=== PATIENT | female | born 1975 | race Caucasian/White ===

== ENCOUNTER 2018-09-28 18:28 | Inpatient (IN) | payer MEDICAID ==
[~2018-09-28] VITALS: Ht 152.4 cm; Wt 68.8 kg
[2018-09-28] MEDS ORDERED: SODIUM CHLORIDE 0.9% 1L BAG IV* STA (18:32)
[2018-09-28] MEDS ORDERED: CEFTRIAXONE 1 GM/50 ML (PMX) 50 ML IVPB STA (18:32)
[2018-09-28] MEDS ORDERED: ONDANSETRON 4 MG INJ IV STA (18:32)
[2018-09-28] MEDS ORDERED: ACETAMINOPHEN 325 MG TAB PO STA (18:32)
--- NOTE | 2018-09-28 22:03 | ERD ---
ER Documentation Chief Complaint Chief Complaint AP AND FEVER X YESTERDAY HPI 43-year-old female presents with abdominal pain and fever for the last day, abdominal pain is mainly to the right flank area. Patient also presents with a fever, in triage the patient was called to the code sepsis. She reports that her symptoms have been ongoing for the last day, she has had no rectal bleeding, no chest pain or shortness of breath. She does not take Tylenol prior to arrival, there are no alleviating or aggravating factors ROS All systems reviewed and are negative except as per history of present illness. Medications Home Meds No Active Prescriptions or Reported Meds Allergies Allergies: Coded Allergies: No Known Drug Allergy (Verified Allergy, Mild, 12/30/09) PMhx/Soc Medical and Surgical Hx: pt denies Medical Hx, pt denies Surgical Hx Hx Alcohol Use: No Hx Substance Use: No Hx Tobacco Use: No Smoking Status: Never smoker Physical Exam Vitals Vital Signs Date Temp Pulse Resp B/P (MAP) Pulse Ox O2 O2 Flow FiO2 Time Delivery Rate 09/28/18 91 18 104/68 100 Room Air 22:04 (80) 09/28/18 89 20 83/57 (66) 100 Room Air 21:48 09/28/18 94 13 96/70 (79) 98 Room Air 21:01 09/28/18 99.0 100 18 106/74 98 Room Air 20:22 (85) 09/28/18 103.1 112 20 118/76 98 Room Air 18:55 (90) 09/28/18 103.1 18:55 09/28/18 100.3 134 20 138/72 98 18:29 (94) Physical Exam Const: Fever noted, patient appears moderately uncomfortable, well-nourished well-hydrated Head: Atraumatic Eyes: Normal Conjunctiva ENT: Normal External Ears, Nose and Mouth. Neck: Full range of motion. No meningismus. Resp: Clear to auscultation bilaterally Cardio: Regular rate and rhythm, no murmurs Abd: Soft, non tender,, there is no rebound or guarding, there is no McBurney's point tenderness, non distended. Normal bowel sounds Skin: No petechiae or rashes Back: No midline tenderness, there is right-sided flank tenderness. Ext: No cyanosis, or edema Neur: Awake and alert Psych: Normal Mood and Affect Result Diagram: 09/28/18 1842 09/28/18 1842 Results 24 hrs Laboratory Tests Test 09/28/18 18:42 09/28/18 18:45 09/28/18 18:55 09/28/18 19:05 White Blood Count 15.7 10^3/ul Red Blood Count 4.75 10^6/ul Hemoglobin 13.7 g/dl Hematocrit 41.7 % Mean Corpuscular 87.8 fl Volume Mean Corpuscular 28.8 pg Hemoglobin Mean Corpuscular 32.9 g/dl Hemoglobin Concen t Red Cell 13.0 % Distribution Width Platelet Count 410 10^3/UL Mean Platelet 8.6 fl Volume Immature 0.300 % Granulocytes % Neutrophils % % Segmented 83 % Neutrophils % (Manual) Band Neutrophils 5 % % (Manual) Lymphocytes % % Lymphocytes % 9 % (Manual) Monocytes % % Monocytes % 3 % (Manual) Eosinophils % % Basophils % % Nucleated Red 0.0 /100WBC Blood Cells % Immature 0.050 10^3/ul Granulocytes # Neutrophils # 10^3/ul Neutrophils # 13.1 10^3/ul (Manual) Band Neutrophils 0.7 10^3/ul # Lymphocytes 1.4 10^3/ul (Manual) Lymphocytes # 10^3/ul Monocytes # 10^3/ul Monocytes # 0.4 10^3/ul (Manual) Eosinophils # 10^3/ul Basophils # 10^3/ul Nucleated Red 10^3/ul Blood Cells # Platelet Estimate NORMAL Prothrombin Time 13.6 Sec Prothrombin Time 1.1 Ratio INR International 1.03 Normalized Ratio Activated 27.8 Sec Partial Thrombopl ast Time Sodium Level 138 mmol/L Potassium Level 3.9 mmol/L Chloride Level 99 mmol/L Carbon Dioxide 27 mmol/L Level Anion Gap 12 Blood Urea 16 mg/dl Nitrogen Creatinine 0.79 mg/dl Est Glomerular > 60 mL/min Filtrat Rate mL/min Glucose Level 130 mg/dl Calcium Level 9.4 mg/dl Total Bilirubin 0.7 mg/dl Direct Bilirubin 0.00 mg/dl Indirect 0.7 mg/dl Bilirubin Aspartate Amino 24 IU/L Transf (AST/SGOT) Alanine 9 IU/L Aminotransferase (ALT/SGPT) Alkaline 104 IU/L Phosphatase Troponin I < 0.012 ng/ml Total Protein 8.3 g/dl Albumin 4.5 g/dl Globulin 3.80 g/dl Albumin/Globulin 1.18 Ratio POC Venous 1.5 mmol/L Lactate Urine Color SHAN Urine Clarity CLOUDY Urine pH 6.0 Urine Specific 1.028 [place] Urine Ketones 2+ mg/dL Urine Nitrite NEGATIVE mg/dL Urine Bilirubin NEGATIVE mg/dL Urine 2+ mg/dL Urobilinogen Urine Leukocyte 2+ Hetal/ul Esterase Urine Microscopic 47 /HPF RBC Urine Microscopic 182 /HPF WBC Urine Squamous MANY /HPF Epithelial Cells Urine Bacteria FEW /HPF Urine Mucus MANY /HPF Urine Hemoglobin 3+ mg/dL Urine Glucose NEGATIVE mg/dL Urine Total 2+ mg/dl Protein POC Beta HCG, NEGATIVE Qualitative Test 09/28/18 20:49 POC Venous 1.0 mmol/L Lactate Current Medications Medications Dose Sig/Deirdre Start Time Status Last (Trade) Ordered Route PRN Stop Time Admin Dose Reason Admin Sodium 1,960 ml BOLUS OVER 2 09/28/18 DC 09/28/18 Chloride HOURS STAT 18:32 18:56 (NS) IV* 09/28/18 18:35 650 mg ONCE STAT 09/28/18 DC 09/28/18 Acetaminophen PO 18:32 18:55 (Tylenol 09/28/18 18:35 Tab) Ondansetron 4 mg ONCE STAT 09/28/18 DC 09/28/18 HCl (Zofran IV 18:32 18:54 Inj) 09/28/18 18:35 Ceftriaxone 50 ml @ ONCE STAT 09/28/18 DC 09/28/18 Sodium 100 mls/hr IVPB 18:32 18:55 09/28/18 19:01 Procedures/MDM 43-year-old female presents for evaluation of right-sided flank pain. Code sepsis was called on the patient, and she was given ceftriaxone, her urinalysis returned positive for CT abdomen pelvis did not show any other acute intra- abdominal findings, with no evidence of appendicitis, no evidence of acute cholecystitis. Labs remarkable for leukocytosis, she was given 30 cc/kg bolus of fluids, her lactate was within normal limits, on reassessment she still has some mild pain, and I noted that her blood pressure was in the 80s systolic, however her map was 65, she is mentating well, and appears to be having good perfusion on exam, thus I do not feel that she requires pressors at this time. She will be admitted to telemetry. Accepting Care Team: Current data and ongoing care discussed. Time: Time of admission Primary Provider: [place] Consulting: None Outstanding Data: none Sepsis Documentation: Patient's infectious symptoms have not stabilized and the patient is at risk of rapid decompensation. The patient will be admitted for careful hydration, antibiotic therapy, and infectious source control. SEVERE SEPSIS CRITERIA: Infectious source: Pyelonephritis End organ damage indicated by: Blood pressure SBP less than 90, however map is greater than 50 SEPSIS MANAGEMENT Time of recognition of sepsis: [Upon arrival]. Time of recognition of severe sepsis: [No severe sepsis at this time]. Time of recognition of septic shock: [No septic shock at this time]. 3 HOUR BUNDLE Blood cultures x 2 before broad-spectrum antibiotics: [Yes] 30 ml/kg NS bolus [Completed] Initial lactate 1.5 Repeat lactate 1.0 SEPTIC SHOCK ASSESSMENT: No evidence of septic shock CRITICAL CARE Critical care time [35] minutes Emergent fluid management while maintaining close respiratory support. Provision of immediate and broad-spectrum antibiotic therapy. Simultaneous assessment for possible sources in order to direct targeted therapy. Consideration for invasive and chemical support to prevent cardiopulmonary collapse. Critical care time is independent of procedures performed. EKG: Rate/Rhythm: Sinus tachycardia QRS, ST, T-waves: No changes consistent w/ acute ischemia Impression: No evidence of ischemia or arrhythmia Departure Diagnosis: Primary Impression: Sepsis Sepsis type: sepsis due to unspecified organism Qualified Codes: A41.9 - Sepsis, unspecified organism Additional Impression: Pyelonephritis Condition: Stable HAMILTON WALSH MD Sep 28, 2018 22:03
[2018-09-28] MEDS ORDERED: SOD CHLORIDE 0.9% 1,000 ML IV ONE (22:30)
--- NOTE | 2018-09-28 23:51 | HP ---
Date/Time of Note Date/Time of Note DATE: 09/28/18 TIME: 23:51 Assessment/Plan VTE Prophylaxis Pharmacological prophylaxis: heparin Lines/Catheters IV Catheter Type (from Nrsg): Saline Lock Assessment/Plan Assessment/Plan 43-year-old female with no significant past medical history presented with abdominal pain/right flank pain and fever and found to be septic secondary to UTI with probable right-sided pyelonephritis PLAN -Telemetry monitoring -Broad-spectrum IV antibiotic, IV fluid -Follow-up blood culture and urine culture results. Trend lactate -CT shows bladder wall thickening without kidney or ureteral stone -Obtain chest x-ray Result Diagram: 09/28/18 1842 09/28/18 1842 Results 24hrs Laboratory Tests Test 09/28/18 18:42 09/28/18 18:45 09/28/18 18:55 09/28/18 19:05 White Blood Count 15.7 H Red Blood Count 4.75 Hemoglobin 13.7 Hematocrit 41.7 Mean Corpuscular 87.8 Volume Mean Corpuscular 28.8 L Hemoglobin Mean Corpuscular 32.9 Hemoglobin Concent Red Cell 13.0 Distribution Width Platelet Count 410 Mean Platelet Volume 8.6 Immature 0.300 Granulocytes % Neutrophils % Segmented 83 H Neutrophils % (Manual) Band Neutrophils % 5 H (Manual) Lymphocytes % Lymphocytes % 9 L (Manual) Monocytes % Monocytes % (Manual) 3 Eosinophils % Basophils % Nucleated Red Blood 0.0 Cells % Immature 0.050 H Granulocytes # Neutrophils # Neutrophils # 13.1 H (Manual) Band Neutrophils # 0.7 H Lymphocytes (Manual) 1.4 Lymphocytes # Monocytes # Monocytes # (Manual) 0.4 Eosinophils # Basophils # Nucleated Red Blood Cells # Platelet Estimate NORMAL Prothrombin Time 13.6 Prothrombin Time 1.1 Ratio INR International 1.03 Normalized Ratio Activated 27.8 Partial Thromboplast Time Sodium Level 138 Potassium Level 3.9 Chloride Level 99 Carbon Dioxide Level 27 Anion Gap 12 Blood Urea Nitrogen 16 Creatinine 0.79 Est Glomerular > 60 Filtrat Rate mL/min Glucose Level 130 Calcium Level 9.4 Total Bilirubin 0.7 Direct Bilirubin 0.00 Indirect Bilirubin 0.7 Aspartate Amino 24 Transf (AST/SGOT) Alanine 9 L Aminotransferase (AL T/SGPT) Alkaline Phosphatase 104 Troponin I < 0.012 Total Protein 8.3 H Albumin 4.5 Globulin 3.80 H Albumin/Globulin 1.18 Ratio POC Venous Lactate 1.5 Urine Color SHAN Urine Clarity CLOUDY A Urine pH 6.0 Urine Specific 1.028 [place] Urine Ketones 2+ H Urine Nitrite NEGATIVE Urine Bilirubin NEGATIVE Urine Urobilinogen 2+ H Urine Leukocyte 2+ H Esterase Urine Microscopic 47 H RBC Urine Microscopic 182 H WBC Urine Squamous MANY A Epithelial Cells Urine Bacteria FEW A Urine Mucus MANY A Urine Hemoglobin 3+ H Urine Glucose NEGATIVE Urine Total Protein 2+ H POC Beta HCG, NEGATIVE Qualitative Test 09/28/18 20:49 09/28/18 22:14 POC Venous Lactate 1.0 Lactic Acid Level 0.8 HPI/ROS Admit Date/Time Admit Date/Time Hx of Present Illness This is a 43-year-old female with no significant past medical history who presents the ER complaining of abdominal pain and fever. Symptoms been going on since yesterday. Pain is mainly localized in the right side of the abdomen in the right flank area. Denied chest pain, shortness of breath. When she presented to the ER, she was found to be febrile. Temp has been as high as 103. Initial heart rate 134. UA consistent with UTI. WBC almost 16,000. PMH/Family/Social Past Medical History Past Surgical Hx: other (See HPI) Family History Significant Family History: no pertinent family hx Social History Alcohol Use: other Smoking Status: Never smoker Drug Use: none Exam/Review of Systems Vital Signs Exam Constitutional: No acute distress. Head: normocephalic, atraumatic Eyes: EOMI, PERRL Respiratory: clear to auscultation, normal air movement Cardiovascular: regular rate and rhythm, nl pulses Gastrointestinal: soft, Extremities: nl pulse Medications Current Medications Sodium Chloride 1,000 ml @ 125 mls/hr Q8H IV ; Start 09/28/18 at 23:42 IV Flush (NS 3 ml) 3 ml PER PROTOCOL IV ; Start 09/29/18 at 00:00 Ondansetron HCl (Zofran Inj) 4 mg Q6H PRN IV NAUSEA/VOMITING; Start 09/29/18 at 00:00 Acetaminophen (Tylenol Tab) 650 mg Q6H PRN PO .PAIN 1-3 OR TEMP; Start 09/29/18 at 00:00 Heparin Sodium (Porcine) (Heparin (5000 Units/1ml)) 5,000 unit Q12 SC ; Start 09/29/18 at 09:00 Sodium Chloride 1,000 ml @ 1,000 mls/hr Q1H ONCE IV ; Start 09/29/18 at 00:00; Stop 09/29/18 at 00:59 Coded Allergies: No Known Drug Allergy (Verified Allergy, Mild, 12/30/09) Social History Smoking Status: Never smoker Exam/Review of Systems Vital Signs Vitals Vital Signs Date Temp Pulse Resp B/P (MAP) Pulse Ox O2 O2 Flow FiO2 Time Delivery Rate 09/28/18 98.7 95 22 96/67 (77) 100 Room Air 23:23 QI MORRIS MD Sep 28, 2018 23:51
[2018-09-29] VITALS (13 sets, daily range): BP systolic 80–124; BP diastolic 59–81; PULSE 76–114; RESP 17–23; Ht 152.4 cm; Wt 68.8 kg
[2018-09-29] MEDS ORDERED: NACL 0.9% 3 ML SYG IV SCH
[2018-09-29] MEDS ORDERED: ACETAMINOPHEN 325 MG TAB PO PRN
[2018-09-29] MEDS: SOD CHLORIDE 0.9% 1,000 ML IV SCH ×4 (01:34→15:56)
[2018-09-29] MEDS ORDERED: SOD CHLORIDE 0.9% 1,000 ML IV ONE ×3 (03:30→20:00)
[2018-09-29] MEDS: CEFTRIAXONE 1 GM/50 ML (PMX) 50 ML IVPB SCH ×2 (08:53→21:10)
[2018-09-29] MEDS: HEPARIN 5,000 UNIT/1 ML VIAL SC SCH ×2 (08:54→21:27)
--- NOTE | 2018-09-29 15:21 | PN ---
Date/Time of Note Date/Time of Note DATE: 09/29/18 TIME: 15:19 Assessment/Plan VTE Prophylaxis Risk score (from Ns)>0 risk: 1 SCD applied (from Ns): Yes SCD contraindicated: low risk/ambulating Pharmacological prophylaxis: LMWH Lines/Catheters [facility] Per[facility] IV Assessment/Plan Hospital Course Assessment plan 1. Sepsis secondary to pyelo, stable treat 2. Acute pyelonephritis stable continue antibiotics 3. Sacroiliitis? XR or outpt rheumatology eval 4. Anemia stable observe Subjective: Feels a little better Objective: Vital signs stable Physical exam No pallor Regular Clear Benign no CVT 8 No edema Result Diagram: 09/29/18 0546 09/29/18 0546 Results 24hrs Laboratory Tests Test 09/28/18 18:42 09/28/18 18:45 09/28/18 18:55 09/28/18 19:05 White Blood Count 15.7 H Red Blood Count 4.75 Hemoglobin 13.7 Hematocrit 41.7 Mean Corpuscular 87.8 Volume Mean Corpuscular 28.8 L Hemoglobin Mean Corpuscular 32.9 Hemoglobin Concent Red Cell 13.0 Distribution Width Platelet Count 410 Mean Platelet Volume 8.6 Immature 0.300 Granulocytes % Neutrophils % Segmented 83 H Neutrophils % (Manual) Band Neutrophils % 5 H (Manual) Lymphocytes % Lymphocytes % 9 L (Manual) Monocytes % Monocytes % (Manual) 3 Eosinophils % Basophils % Nucleated Red Blood 0.0 Cells % Immature 0.050 H Granulocytes # Neutrophils # Neutrophils # 13.1 H (Manual) Band Neutrophils # 0.7 H Lymphocytes (Manual) 1.4 Lymphocytes # Monocytes # Monocytes # (Manual) 0.4 Eosinophils # Basophils # Nucleated Red Blood Cells # Platelet Estimate NORMAL Prothrombin Time 13.6 Prothrombin Time 1.1 Ratio INR International 1.03 Normalized Ratio Activated 27.8 Partial Thromboplast Time Sodium Level 138 Potassium Level 3.9 Chloride Level 99 Carbon Dioxide Level 27 Anion Gap 12 Blood Urea Nitrogen 16 Creatinine 0.79 Est Glomerular > 60 Filtrat Rate mL/min Glucose Level 130 Calcium Level 9.4 Total Bilirubin 0.7 Direct Bilirubin 0.00 Indirect Bilirubin 0.7 Aspartate Amino 24 Transf (AST/SGOT) Alanine 9 L Aminotransferase (AL T/SGPT) Alkaline Phosphatase 104 Troponin I < 0.012 Total Protein 8.3 H Albumin 4.5 Globulin 3.80 H Albumin/Globulin 1.18 Ratio POC Venous Lactate 1.5 Urine Color SHAN Urine Clarity CLOUDY A Urine pH 6.0 Urine Specific 1.028 [place] Urine Ketones 2+ H Urine Nitrite NEGATIVE Urine Bilirubin NEGATIVE Urine Urobilinogen 2+ H Urine Leukocyte 2+ H Esterase Urine Microscopic 47 H RBC Urine Microscopic 182 H WBC Urine Squamous MANY A Epithelial Cells Urine Bacteria FEW A Urine Mucus MANY A Urine Hemoglobin 3+ H Urine Glucose NEGATIVE Urine Total Protein 2+ H POC Beta HCG, NEGATIVE Qualitative Test 09/28/18 20:49 09/28/18 22:14 09/29/18 05:46 POC Venous Lactate 1.0 Lactic Acid Level 0.8 White Blood Count 11.5 #H Red Blood Count 3.56 #L Hemoglobin 10.3 #L Hematocrit 32.1 #L Mean Corpuscular 90.2 Volume Mean Corpuscular 28.9 L Hemoglobin Mean Corpuscular 32.1 Hemoglobin Concent Red Cell 13.2 Distribution Width Platelet Count 303 # Mean Platelet Volume 9.1 Immature 0.400 Granulocytes % Neutrophils % 85.7 H Lymphocytes % 7.3 L Monocytes % 6.3 Eosinophils % 0.0 Basophils % 0.3 Nucleated Red Blood 0.0 Cells % Immature 0.050 H Granulocytes # Neutrophils # 9.9 H Lymphocytes # 0.8 Monocytes # 0.7 Eosinophils # 0.0 Basophils # 0.0 Nucleated Red Blood 0.0 Cells # Sodium Level 141 Potassium Level 3.7 Chloride Level 113 H Carbon Dioxide Level 20 L Anion Gap 8 Blood Urea Nitrogen 8 Creatinine 0.50 Est Glomerular > 60 Filtrat Rate mL/min Glucose Level 96 Calcium Level 7.0 L Magnesium Level 1.9 Total Bilirubin 0.4 Direct Bilirubin 0.00 Indirect Bilirubin 0.4 Aspartate Amino 16 Transf (AST/SGOT) Alanine 16 Aminotransferase (AL T/SGPT) Alkaline Phosphatase 78 Total Protein 6.0 #L Albumin 2.9 #L Globulin 3.10 Albumin/Globulin 0.93 Ratio Exam/Review of Systems Exam Vitals Vital Signs Date Temp Pulse Resp B/P (MAP) Pulse Ox O2 O2 Flow FiO2 Time Delivery Rate 09/29/18 98 12:00 09/29/18 98.1 22 102/61 96 Room Air 11:14 (75) Intake and Output 09/28/18 09/28/18 09/29/18 1515:00 23:00 07:00 IntakeIntake Total 3240 ml BalanceBalance 3240 ml Results Results 24hrs Laboratory Tests Test 09/28/18 18:42 09/28/18 18:45 09/28/18 18:55 09/28/18 19:05 White Blood Count 15.7 H Red Blood Count 4.75 Hemoglobin 13.7 Hematocrit 41.7 Mean Corpuscular 87.8 Volume Mean Corpuscular 28.8 L Hemoglobin Mean Corpuscular 32.9 Hemoglobin Concent Red Cell 13.0 Distribution Width Platelet Count 410 Mean Platelet Volume 8.6 Immature 0.300 Granulocytes % Neutrophils % Segmented 83 H Neutrophils % (Manual) Band Neutrophils % 5 H (Manual) Lymphocytes % Lymphocytes % 9 L (Manual) Monocytes % Monocytes % (Manual) 3 Eosinophils % Basophils % Nucleated Red Blood 0.0 Cells % Immature 0.050 H Granulocytes # Neutrophils # Neutrophils # 13.1 H (Manual) Band Neutrophils # 0.7 H Lymphocytes (Manual) 1.4 Lymphocytes # Monocytes # Monocytes # (Manual) 0.4 Eosinophils # Basophils # Nucleated Red Blood Cells # Platelet Estimate NORMAL Prothrombin Time 13.6 Prothrombin Time 1.1 Ratio INR International 1.03 Normalized Ratio Activated 27.8 Partial Thromboplast Time Sodium Level 138 Potassium Level 3.9 Chloride Level 99 Carbon Dioxide Level 27 Anion Gap 12 Blood Urea Nitrogen 16 Creatinine 0.79 Est Glomerular > 60 Filtrat Rate mL/min Glucose Level 130 Calcium Level 9.4 Total Bilirubin 0.7 Direct Bilirubin 0.00 Indirect Bilirubin 0.7 Aspartate Amino 24 Transf (AST/SGOT) Alanine 9 L Aminotransferase (AL T/SGPT) Alkaline Phosphatase 104 Troponin I < 0.012 Total Protein 8.3 H Albumin 4.5 Globulin 3.80 H Albumin/Globulin 1.18 Ratio POC Venous Lactate 1.5 Urine Color SHAN Urine Clarity CLOUDY A Urine pH 6.0 Urine Specific 1.028 [place] Urine Ketones 2+ H Urine Nitrite NEGATIVE Urine Bilirubin NEGATIVE Urine Urobilinogen 2+ H Urine Leukocyte 2+ H Esterase Urine Microscopic 47 H RBC Urine Microscopic 182 H WBC Urine Squamous MANY A Epithelial Cells Urine Bacteria FEW A Urine Mucus MANY A Urine Hemoglobin 3+ H Urine Glucose NEGATIVE Urine Total Protein 2+ H POC Beta HCG, NEGATIVE Qualitative Test 09/28/18 20:49 09/28/18 22:14 09/29/18 05:46 POC Venous Lactate 1.0 Lactic Acid Level 0.8 White Blood Count 11.5 #H Red Blood Count 3.56 #L Hemoglobin 10.3 #L Hematocrit 32.1 #L Mean Corpuscular 90.2 Volume Mean Corpuscular 28.9 L Hemoglobin Mean Corpuscular 32.1 Hemoglobin Concent Red Cell 13.2 Distribution Width Platelet Count 303 # Mean Platelet Volume 9.1 Immature 0.400 Granulocytes % Neutrophils % 85.7 H Lymphocytes % 7.3 L Monocytes % 6.3 Eosinophils % 0.0 Basophils % 0.3 Nucleated Red Blood 0.0 Cells % Immature 0.050 H Granulocytes # Neutrophils # 9.9 H Lymphocytes # 0.8 Monocytes # 0.7 Eosinophils # 0.0 Basophils # 0.0 Nucleated Red Blood 0.0 Cells # Sodium Level 141 Potassium Level 3.7 Chloride Level 113 H Carbon Dioxide Level 20 L Anion Gap 8 Blood Urea Nitrogen 8 Creatinine 0.50 Est Glomerular > 60 Filtrat Rate mL/min Glucose Level 96 Calcium Level 7.0 L Magnesium Level 1.9 Total Bilirubin 0.4 Direct Bilirubin 0.00 Indirect Bilirubin 0.4 Aspartate Amino 16 Transf (AST/SGOT) Alanine 16 Aminotransferase (AL T/SGPT) Alkaline Phosphatase 78 Total Protein 6.0 #L Albumin 2.9 #L Globulin 3.10 Albumin/Globulin 0.93 Ratio Medications Medication Current Medications Sodium Chloride 1,000 ml @ 125 mls/hr Q8H IV Last administered on 09/29/18at 08:54; Admin Dose 125 MLS/HR; Start 09/28/18 at 23:42 IV Flush (NS 3 ml) 3 ml PER PROTOCOL IV ; Start 09/29/18 at 00:00 Ondansetron HCl (Zofran Inj) 4 mg Q6H PRN IV NAUSEA/VOMITING; Start 09/29/18 at 00:00 Acetaminophen (Tylenol Tab) 650 mg Q6H PRN PO .PAIN 1-3 OR TEMP; Start 09/29/18 at 00:00 Heparin Sodium (Porcine) (Heparin (5000 Units/1ml)) 5,000 unit Q12 SC ; Start 09/29/18 at 09:00 Ceftriaxone Sodium 50 ml @ 100 mls/hr Q12 IVPB Last administered on 09/29/18at 08:53; Admin Dose 100 MLS/HR; Start 09/29/18 at 09:00 MICHELINE SAINZ MD Sep 29, 2018 15:21
[2018-09-29] MEDS ORDERED: ONDANSETRON 4 MG INJ IV PRN ×2 (15:30)
[2018-09-29] MEDS ORDERED: LOPERAMIDE 2 MG CAP PO ONE (20:00)
[2018-09-30] VITALS (8 sets, daily range): BP systolic 93–109; BP diastolic 51–69; PULSE 61–81; RESP 17–18
[2018-09-30] MEDS: SOD CHLORIDE 0.9% 1,000 ML IV SCH ×2 (01:46→06:25)
[2018-09-30] MEDS: CEFTRIAXONE 1 GM/50 ML (PMX) 50 ML IVPB SCH (08:57)
[2018-09-30] MEDS ORDERED: FAMOTIDINE 20 MG INJ IV SCH (09:00)
[2018-09-30] MEDS: HEPARIN 5,000 UNIT/1 ML VIAL SC SCH (09:09)
[2018-09-30] MEDS ORDERED: AMOX500C2 PO (12:11)
[2018-09-30] MEDS ORDERED: Work Note (12:13)
--- NOTE | 2018-09-30 12:19 | PDOCDIS ---
Discharge Instructions CONDITION [id number] Patient Condition: [id number] Stable HOME CARE INSTRUCTIONS: [id number] Diet Instructions: [id number] Regular ACTIVITY: [id number] Activity Restrictions: [id number] No Restrictions FOLLOW UP/APPOINTMENTS Follow-up Plan Jeromy Christian MD Specialty: Internal Medicine Office Address: [address] [place] [address] [place], [place] [id number] Office OTHER ORDERS: Other Orders: 1. Take a regular diet as tolerated 2. Complete the course of antibiotics. 3. Follow-up with your primary care physician in 2 weeks. If you do not have a primary care physician, please call Dr. Jeromy Christian's office. 4. Have your primary care physician arrange for outpatient follow-up with rheumatology follow-up because of bilateral sacroiliitis found in the CT scan. 5. Please go to the nearest emergency room if you have any significant abdominal pain, persistent fevers, persistent nausea/vomiting, or any other unusual signs or symptoms. ZAKIYA WHITE NP Sep 30, 2018 12:19
--- NOTE | 2018-09-30 13:24 | DS ---
Date/Time of Note Date/Time of Note DATE: 09/30/18 TIME: 13:24 Discharge Summary Admission/Discharge Info Admit Date/Time Sep 28, 2018 at 21:51 Discharge Date/Time Discharge Diagnosis 1. Right-sided pyelonephritis. 2. Sepsis secondary to acute pyelonephritis. 3. Normocytic anemia. 4. Bilateral sacroiliitis (incidental finding). Patient Condition: Stable Procedures CT Abdomen & Pelvis IMPRESSION: Mild bladder wall thickening could be due to under-distension. Clinical correlation is needed to exclude cystitis. Bilateral sacroiliitis. Otherwise no acute abnormality identified within the abdomen and pelvis. Hx of Present Illness This is a 42-year-old female with no significant past medical history who presented to the emergency room complaining of abdominal pain and fever. The patient was noticed to be febrile in the emergency room. The patient also had evidence of underlying sepsis with leukocytosis, tachycardia, and febrile illness. The patient's urinalysis was positive with a positive leukocyte esterase with urine microscopic WBC of 182. The patient was admitted to i npatient setting for further treatment and evaluation. Hospital Course The patient was started on empiric antibiotics. Pancultures were obtained. The patient had a few episodes of diarrhea too. Stool for C. difficile was negative. The patient's blood cultures remain negative. Influenza A and B screen was negative. The patient's urine culture showed positive E. coli and Strep pyogenes that was pansensitive. The patient was maintained on antimicrobial therapy. The patient underwent a CT scan of the abdomen and pelvis that was showing evidence of mild bladder wall thickening. CT also showed bilateral sacroiliitis. 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 Nevertheless, the patient did not have any chronic pain in the sacroiliac joints. The patient had a stable hospital course. The patient responded well to the treatment strategy. The patient's diarrhea resolved. The patient's abdominal p ain has been resolved. The patient is stable for outpatient management to complete the course of oral antimicrobials. Discharge Instructions 1. Take a regular diet as tolerated 2. Complete the course of antibiotics. 3. Follow-up with your primary care physician in 2 weeks. If you do not have a primary care physician, please call Dr. Jeromy Christian's office. 4. Have your primary care physician arrange for outpatient follow-up with rheumatology follow-up because of bilateral sacroiliitis found in the CT scan. 5. Please go to the nearest emergency room if you have any significant abdominal pain, persistent fevers, persistent nausea/vomiting, or any other unusual signs or symptoms. The patient verbalized understanding of her discharge instructions. The patient was seen in collaboration with Dr. Love. [facility] [employer] [Work Note] No Conflict Check This is to certify that the patient was admitted to [facility] from 09/28/2018 to 09/30/2018. She may return back to work on 10/02/2018 with no restrictions. Prov:ZAKIYA WHITE NURSES AIDE 09/30/18 Amoxicillin* (Amoxicillin*) 500 Mg Cap, 500 MG PO Q8 for 10 Days, #30 CAP Prov:ZAKIYA HWITE NP 09/30/18 Follow-up Plan Jeromy Christian MD Specialty: Internal Medicine Office Address: [address] [place] [id number] Office Primary Care Provider Care Physician No Primary Time spent on discharge: > 30 minutes Pending Labs RUN DATE: 09/30/18 [facility] PAGE 1 RUN TIME: [id number] [place] [address] Franky Villalobos M.D. Endoscopy Support Specialist Kasandra Corbin M.D. Co-Endoscopy Support Specialist RONEN#: [id number] Name: PEÑA GUILLORY Age/Sex: 43/F Attend Dr: MICHELINE SAINZ MD Acct: [id number] MR# : [id number] : 1975 Location: TEL 520-A Admit: 09/28/18 Specimen: [id number] Status: Complete Tali: 09/28/18 Rcvd: 09/28/18 Source: CATHETER U Sp Descrip: Procedure Result Microbiology URINE CULTURE Final Organism 1 ESCHERICHIA COLI COLONY COUNT 10,000 - 20,000 CFU/ml Organism 2 STREP PYOGENES (GRP A) COLONY COUNT >100,000 CFU/ml Susceptibility testing for Streptococcus Pyogenes Group A or Streptococcus Group Agalactiae Group B is not usually performed due to predictable susceptibiltiy to penicillin E COLI E COLI M.I.C. RX M.I.C. RX --------- --- --------- --- AMPICILLIN <=2 S CEFAZOLIN <=4 S CEFOTAXIME S CIPROFLOXACIN <=0.25 S GENTAMICIN <=1 S LEVOFLOXACIN <=0.12 S MEROPENEM 0.023 S NITROFURANTOIN <=16 S TOBRAMYCIN <=1 S TRIMETHOPRIM/SULFAMETHOXAZOLE <=20 S .................................................. .......................................... Flags: Critical Hi = *H Critical Lo = *L Microbiology Abnormal = * Abnormal Hi = H Abnormal Lo = L Blood Bank Abnormal = * Susceptability Flags: S = Sensitive R = Resistant I = Intermediate END OF REPORT Laboratory Tests Test 09/30/18 06:09 09/30/18 07:32 White Blood Count 5.9 10^3/ul (4.8-10.8) Red Blood Count 3.48 10^6/ul (4.20-5.40) Hemoglobin 9.9 g/dl (12.0-16.0) Hematocrit 31.2 % (37.0-47.0) Mean Corpuscular Volume 89.7 fl (82.0-101.0) Mean Corpuscular Hemoglobin 28.4 pg (29.0-33.0) Mean Corpuscular 31.7 g/dl (32.0-37.0) Hemoglobin Concent Red Cell Distribution Width 13.7 % (11.5-14.5) Platelet Count 323 10^3/UL (140-415) Mean Platelet Volume 9.1 fl (7.4-10.4) Immature Granulocytes % 0.200 % (0.001-0.429) Neutrophils % 69.2 % (39.0-77.0) Lymphocytes % 20.6 % (15.0-51.0) Monocytes % 8.3 % (0.0-11.0) Eosinophils % 1.2 % (0.0-7.0) Basophils % 0.5 % (0.0-2.0) Nucleated Red Blood Cells % 0.0 /100WBC (0.0-0.0) Immature Granulocytes # 0.010 10^3/ul (0.0-0.031) Neutrophils # 4.1 10^3/ul (1.6-7.5) Lymphocytes # 1.2 10^3/ul (0.8-2.9) Monocytes # 0.5 10^3/ul (0.3-0.9) Eosinophils # 0.1 10^3/ul (0.0-0.5) Basophils # 0.0 10^3/ul (0.0-0.1) Nucleated Red Blood Cells # 0.0 10^3/ul (0.0-0.0) Sodium Level 142 mmol/L (135-144) Potassium Level 3.3 mmol/L (3.5-5.1) Chloride Level 112 mmol/L (97-110) Carbon Dioxide Level 25 mmol/L (21-31) Anion Gap 5 (5-13) Blood Urea Nitrogen 3 mg/dl (7-20) Creatinine 0.50 mg/dl (0.44-1.00) Est Glomerular Filtrat Rate mL/min > 60 mL/min (>60) Glucose Level 92 mg/dl (70-220) Calcium Level 7.6 mg/dl (8.4-10.2) Phosphorus Level 2.3 mg/dl (2.5-4.9) Magnesium Level 2.1 mg/dl (1.7-2.5) Total Bilirubin 0.2 mg/dl (0.2-1.3) Direct Bilirubin 0.00 mg/dl (0.00-0.20) Indirect Bilirubin 0.2 mg/dl (0-1.1) Aspartate Amino Transf (AST/SGOT) 25 IU/L (15-46) Alanine 25 IU/L (13-69) Aminotransferase (ALT/SGPT) Alkaline Phosphatase 74 IU/L (42-121) Total Protein 5.7 g/dl (6.1-8.1) Albumin 2.9 g/dl (3.3-4.9) Globulin 2.80 g/dl (1.3-3.2) Albumin/Globulin Ratio 1.03 Thyroid Stimulating Hormone (TSH) 2.370 MIU/L (0.465-4.680) Bedside Glucose 98 mg/dL (70-220) Microbiology Date/Time Source Procedure Growth Status 09/29/18 20:00 Feces Clostridium difficile Toxin Assay - Final Complete ZAKIYA WHITE NP Sep 30, 2018 13:24
[2018-09-30] MEDS ORDERED: POTASSIUM CHLORIDE (SR) 10 MEQ TAB PO ONE (15:00)
== END 2018-09-30 16:23 | disposition home or self-care (01) | DRG 872 ==
LOC: E/R 18:28 → TEL 21:51 → CANRESERV 22:29 → TEL 23:47
PROVIDERS: ADMIT Internal Medicine; ATTEND Internal Medicine
DX: A41.9 Sepsis, unspecified organism (principal); N10 Acute pyelonephritis; D64.9 Anemia, unspecified; M46.1 Sacroiliitis, not elsewhere classified
CPT/HCPCS: 36415; 71046; 72100; 74176; 80053; 81001; 81025; 82962; 83036; 83605; 83735; 84100; 84443; 84484; 85025; 85610; 85730; 87045; 87075; 87086; 87400; 93005; 96374; 96375; J0696; J1644; J2405; J7030